=== PATIENT | female | born 1955 | race Caucasian/White ===

== ENCOUNTER 2021-05-26 17:38 | Emergency (ER) | payer OTHER, SELFPAY ==
[~2021-05-26] VITALS: Ht 157.5 cm; Wt 64.9 kg
[2021-05-26 18:00] VITALS: BP_SYST 128
--- NOTE | 2021-05-26 18:00 | NUR ---
PT CAME FROM [facility] . PT TO GO TO ROOM 54A AT [facility].
--- NOTE | 2021-05-26 18:00 | NUR ---
PT TO [facility] FOR MEDICAL CLEARANCE. REPORT GIVEN TO MARGE LAMAR WHO WILL ASSUME CARE.
--- NOTE | 2021-05-26 18:05 | NUR ---
Pt bib caregiver for medical clearance to go to [facility]. No complaints at this time. V/S stable, no acute distress noted.
--- NOTE | 2021-05-26 19:11 | NUR ---
Assumed care of patient at change of shift. Introduced self to patient, positioned for comfort. Bed to low position sr up. awaiting MD exam and eval. Patient resting quietly. No acute distress noted. Vital signs within normal range.
--- NOTE | 2021-05-26 20:42 | NUR ---
Blood for labwork drawn from [facility] by lab. Patient tolerated procedure. Ricardo monique obtained and sent to lab
[2021-05-26 21:10] LABS: BASOPHILS % (AUTO) 0.4 % (0.0-2.0); EOSINOPHILS # (AUTO) 0.6 K/uL (0.0-0.4); EOSINOPHILS % (AUTO) 8.3 % (0.0-4.0); HEMATOCRIT 37.1 % (36-48); HEMOGLOBIN 12.8 g/dL (12.0-16.0); LYMPHOCYTES # (AUTO) 1.9 K/uL (1.0-5.5); LYMPHOCYTES % (AUTO) 24.6 % (20.5-51.5); MEAN CORPUSCULAR HEMOGLOBIN 31 pg (27-31); MEAN CORPUSCULAR HGB CONC 35 % (32-36); MEAN CORPUSCULAR VOLUME 91 fL (79.0-98.0); MONOCYTES # (AUTO) 0.6 K/uL (0.0-1.0); MONOCYTES % (AUTO) 7.4 % (1.7-9.3); NEUTROPHILS # (AUTO) 4.6 K/uL (1.8-7.7); NEUTROPHILS % (AUTO) 59.3 % (40.0-70.0); PLATELET COUNT (AUTO) 263 K/uL (130-430); RED BLOOD CELL COUNT(AUTO) 4.09 MIL/uL (4.2-6.2); RED CELL DISTRIBUTION WIDTH 13.5 % (9.0-15.0); WHITE BLOOD COUNT (AUTO) 7.7 K/uL (4.8-10.8)
--- NOTE | 2021-05-26 21:27 | NUR ---
Patient resting quietly. No acute distress noted. Vital signs within normal range. Contacted and spoke w/ Mr Goodman, Director of [employer] for updated information but was informed by MD Goodman that patient AD will contact and present [facility]
[2021-05-26 21:32] LABS: ANION GAP 6 (5-15); CHLORIDE 102 mmol/L (98-107); CREATININE 0.75 mg/dL (0.55-1.30); GLUCOSE 126 mg/dL (70-99); POTASSIUM 3.5 mmol/L (3.5-5.1); SODIUM SERUM 139 mmol/L (136-145); UREA NITROGEN, BLOOD 9 mg/dL (8-21)
[2021-05-26 21:37] LABS: ALANINE AMINOTRANSFERASE 19 U/L (12-78); ALBUMIN 3.2 g/dL (3.4-4.8); ASPARTATE AMINOTRANSFERASE 17 U/L (10-37); TOTAL BILIRUBIN 0.1 mg/dL (0.0-1.0)
[2021-05-26 21:42] LABS: ACETAMINOPHEN < 1 ug/mL (1-30); ALCOHOL, BLOOD < 3 mg/dL (<10); GFR AFRICAN AMERICAN 99 mL/min (>90)
[2021-05-26 21:57] LABS: BILIRUBIN,URINE NEGATIVE (NEGATIVE); CLARITY/URINE OTHER (CLEAR); COLOR,URINE YELLOW (YELLOW); GLUCOSE,URINE NEGATIVE (NEGATIVE); KETONES,URINE NEGATIVE (NEGATIVE); LEUKOCYTE ESTERASE ,URINE 3+ (NEGATIVE); NITRITE, URINE NEGATIVE (NEGATIVE); PH,URINE 6.5 (5.0-8.0); PROTEIN URINE NEGATIVE (NEGATIVE); UROBILINOGEN,URINE 0.2 (0.2-1.0)
[2021-05-26 21:59] LABS: CHOLESTEROL 141 mg/dL (<200); HDL CHOLESTEROL 65 mg/dL (>55); LDL CHOLESTEROL 68 mg/dL (<100); TRIGLYCERIDES 70 mg/dL (30-150)
[2021-05-26] MEDS: traMADol HCL HCL 50 MG TABLET (ULTRAM) PO ONE (22:00)
--- NOTE | 2021-05-26 22:56 | NUR ---
Received call from AD from [facility], patient was sent to [facility] for medical clearance to be sent to [facility] 2nd to not talking, not showering or changing her clothing, decreased appetite and not socializing with patient or staff compared to initial medical screening.
[2021-05-26] MEDS ORDERED: VANCOMYCIN HCL 1000 MG/VIAL IV ONE (23:05)
[2021-05-26] MEDS ORDERED: PIPERACILLIN/TAZOBACTAM 3.375 GM/VIAL (ZOSYN) IV ONE (23:06)
[2021-05-26] MEDS ORDERED: CLIN300C12 PO (23:14)
[2021-05-26 23:18] LABS: BARBITURATE, URINE POSITIVE (NEG <=200); BENZODIAZEPINE, URINE NEGATIVE (NEG <=150); CANNABINOID, URINE NEGATIVE (NEG <=50); COCAINE, URINE NEGATIVE (NEG <=150); METHAMPHETAMINES SCREEN,URINE NEGATIVE (NEG <=500); URINE AMPHETAMINE NEGATIVE (NEG <=500); URINE METHADONE NEGATIVE (NEG <=200)
[2021-05-26 23:19] LABS: OPIATE, URINE POSITIVE (NEG <=100); PHENCYCLIDINE SCREEN,URINE NEGATIVE (NEG <=25); UR TRICYCLIC ANTIDEPRESSANTS NEGATIVE (NEG <=300); URINE OXYCODONE SCREEN NEGATIVE (NEG <=100); URINE PROPOXYPHENE SCREEN NEGATIVE (NEG <=300)
--- NOTE | 2021-05-26 23:40 | NUR ---
# 20 gauge angiocath placed to RAC. Use of asceptic technique. Opsite placed over site. Blood return noted. Flushed with 10 cc of normal saline. No evidence of infiltration noted. Patient tolerated well.
[2021-05-26] MEDS: PIPERACILLIN/TAZO 3.375 GM in NS 50 ML IV ONE (23:51)
--- NOTE | 2021-05-26 23:51 | NUR ---
Medicated w/ norco and zosyn 3.375gms ivpb per MD orders. IV abx infusing with no s/s of infiltration at this time. Will cont to monitor and observe for any adverse reaction.
[2021-05-26] MEDS: HYDROcodone/ACETAMIN 5-325 MG TAB (NORCO/ VICODIN) PO ONE (23:52)
[2021-05-27 00:11] LABS: BLOOD, URINE TRACE (NEGATIVE)
[2021-05-27] MEDS: VANCOMYCIN HCL 1,000 MG in NS 250 ML IV ONE (00:11)
[2021-05-27 00:17] LABS: RBC,URINE 0-3 /HPF (0-3)
[2021-05-27 00:18] LABS: BACTERIA,URINE RARE /HPF (None Seen); WBC,URINE 0-3 /HPF (0-3)
--- NOTE | 2021-05-27 00:30 | NUR ---
Medicated w/ Azithromycin 500mg ivp b per MD orders. IV abx infusing with no s/s of infiltration at this time. Will cont to monitor and observe for any adverse reaction. continue to monitor.
--- NOTE | 2021-05-27 01:11 | NUR ---
MRSA SWAB COLLECTED AND SENT TO LAB.
--- NOTE | 2021-05-27 01:21 | NUR ---
Report called and given to Mariya BIRD at [facility] for room 54A. Patient to be transferred to [facility]. Is being transferred due to higher level of care. Receiving facility has accepting physician and available space. ER physician has signed transfer form. Patient or responsible green party has agreed to transfer and signed form. Patient belongings inventoried and will be sent with patient. Copy of nursing notes, lab reports, EKG, Physicians Orders and X-rays to be sent with patient. Report called to at receiving facility. Receiving physician is tyron. [facility] ambulance service has been called for transfer. ETA is [id number].
--- NOTE | 2021-05-27 02:01 | NUR ---
Patient given written and verbal discharge instructions and verbalizes understanding. ER MD discussed with patient the results and treatment provided. Patient in stable condition. ID arm band removed. IV catheter removed intact and dressing applied, no active bleeding. Rx of Clindamycin given. Patient educated on pain management and to follow up with PMD. Pain Scale 0. Opportunity for questions provided and answered. Medication side effect fact sheet provided. report given to lead EMT.
[2021-05-27 02:02] VITALS: BP_SYST 105
== END 2021-05-27 02:01 ==
LOC: SED 17:38
DX: L03.115 Cellulitis of right lower limb (principal); L03.116 Cellulitis of left lower limb; F23 Brief psychotic disorder; Z79.899 Other long term (current) drug therapy; Z20.822 Contact with and (suspected) exposure to COVID-19
CPT/HCPCS: 36415; 71045; 80053; 80061; 80307; 81000; 83036; 83605; 83880; 84484; 85025; 85610; 85730; 87040; 87081; 87426; 93005; 93970; 96365; 96366; 96367; 99285; C9803; G0480; J2543; J3370; U0003; G0481; G0482